=== PATIENT | male | born 1995 | race Caucasian/White ===

== ENCOUNTER → 2020-12-15 16:14 | Outpatient (CLI) | payer OTHER, SELFPAY ==
--- NOTE | 2020-12-15 16:21 | RAD_ITS ---
STUDY: X-RAY - LUMBAR SPINE REASON FOR EXAM: Male, 25 years old. Through L5 fracture. TECHNIQUE: 4 view(s) of the lumbar spine were obtained. COMPARISON: None FINDINGS: Normal lumbar lordosis. Mild levoscoliosis with the convexity at T12. Minimal anterolisthesis of L5 on S1. There is abnormal normal alignment of the vertebrae. No alteration of alignment with flexion or extension. Normal vertebral bodies and endplates. Normal disc space heights. There is no evidence of acute fracture or loss of vertebral axial height. The soft tissue structures are unremarkable. RAD/L/S Spine Min 4 Views IMPRESSION: No acute fracture or subluxation. There is minimal anterolisthesis of L4 on L5. There is no evidence of vertebral instability. Electronically Signed: Derrek Hammond DO at 16:39 EDT Tel [phone], Service support ,
== END ==
PROVIDERS: PCP Family Medicine; Referring Provider Family Medicine; Visit Provider Family Medicine
DX: S32.059A Unspecified fracture of fifth lumbar vertebra, initial encounter for closed fracture (principal); X58.XXXA Exposure to other specified factors, initial encounter; Y93.9 Activity, unspecified; Y92.9 Unspecified place or not applicable; Y99.9 Unspecified external cause status
CPT/HCPCS: 72110

== ENCOUNTER → 2020-12-22 08:17 | Outpatient (CLI) | payer OTHER, SELFPAY ==
--- NOTE | 2020-12-22 08:19 | RAD_ITS ---
INDICATION: GAG REFLEX W/VALSALVA,CORE EXERCISES CAUSE NEAR VOMITTING CLINICAL INDICATION: 25-year-old male presenting with reflux, gagging and vomiting. EXAM: Double contrast esophagram. TECHNIQUE: Standard double phase esophagram performed with effervescent capsules and thick and thin barium. FINDINGS: Unremarkable transit of the contrast bolus within the oral cavity, unremarkable transit through the hypopharynx, no evidence of laryngeal penetration or aspiration was seen. Unremarkable transit through the esophagus, no evidence of gastroesophageal stricture or webs, no evidence of esophageal diverticula visualized. Unremarkable esophageal peristalsis seen. No evidence of hiatus hernia visualized No evidence of gastroesophageal reflux. Fluoroscopy time 1.23 minutes. Dose area product: 89.80 mGycm2 RAD/Upper GI w/BA Swallow IMPRESSION: Unremarkable esophagram, no evidence of gastroesophageal reflux. Electronically Signed: Cristian Correia MD at 12:18 EDT Tel , Service support ,
== END ==
PROVIDERS: PCP Family Medicine; Referring Provider Family Medicine; Visit Provider Family Medicine
DX: R13.10 Dysphagia, unspecified (principal)
CPT/HCPCS: 74246

== ENCOUNTER → 2020-12-30 | Outpatient (CLI) | payer OTHER, SELFPAY ==
[2021-01-01 20:08] LABS: Covid Inpatient test code BILL Performed (.)
== END | disposition home or self-care (01) ==
PROVIDERS: PCP Family Medicine; Visit Provider Physician Assistant Surgical
DX: Z11.52 Encounter for screening for COVID-19 (principal)
CPT/HCPCS: 87635; U0005; U0003